=== PATIENT | female | born 1965 | race Caucasian/White ===

== ENCOUNTER 2025-03-31 10:05 | Outpatient (CLI) | payer BC ==
[2025-03-31 11:19] LABS: Estimated GFR - POC 83.0
== END 2025-03-31 10:06 | disposition home or self-care (01) ==
LOC: SCSMRI 10:05
PROVIDERS: ATTEND Family Medicine
DX: R53.1 Weakness (principal); R90.82 White matter disease, unspecified; I73.9 Peripheral vascular disease, unspecified
CPT/HCPCS: 36415; 70553; 76376; 82565